=== PATIENT | female | born 1950 | race Caucasian/White ===

== ENCOUNTER 2022-03-14 12:41 | Inpatient (IN) | payer MEDICAID ==
[2022-03-13 20:37] VITALS: BP 159/70
[~2022-03-14] VITALS: Ht 157.5 cm; Wt 77.1 kg
[2022-03-14 12:53] VITALS: BP 167/73
--- NOTE | 2022-03-14 13:30 | NUR ---
71/F C/O CHEST PAIN ONSET 1 HR RADIATING TO NECK AND BACK AND RIGHT ARM. PT DENIES DIZZINESS OR SYNCOPE. PT REPORTS TAKING LOSARTAN SL TODAY. AAO4, AMBULATORY, ON MONITOR. VITALS STABLE. ALLERGY: VIPIRON, CATOPRIL PMH: HTN, HDL, MASTECTOMY (RIGHT) 22 Y AGO
[2022-03-14] MEDS ORDERED: NITROGLYCERIN 0.4 MG TAB SL ONE (13:40)
[2022-03-14] MEDS ORDERED: ASPIRIN 325 MG TAB PO ONE (13:40)
[2022-03-14] MEDS ORDERED: MORPHINE SULFATE 2 MG/ML SYR IVP ONE (13:40)
--- NOTE | 2022-03-14 13:55 | NUR ---
RANDALL COLLECTED AND SENT TO LAB
--- NOTE | 2022-03-14 13:59 | NUR ---
US AT BEDSIDE
[2022-03-14 14:18] LABS: ALBUMIN 3.5 g/dL (3.4-5.0); ANION GAP 11.3 (8-16); ASPARTATE AMINOTRANSFERASE 20 U/L (15-37); CARBON DIOXIDE 28.1 mmol/L (21-32); CHLORIDE 106 mmol/L (98-107); CREATININE 0.6 mg/dL (0.6-1.3); GLUCOSE 111 mg/dL (74-106); POTASSIUM 3.4 mmol/L (3.5-5.1); SODIUM SERUM 142 mmol/L (136-145); TOTAL BILIRUBIN 0.2 mg/dL (0.0-1.0)
[2022-03-14 14:26] LABS: BASOPHILS # (AUTO) 0.1 K/uL (0.00-0.22); BASOPHILS % (AUTO) 0.9 % (0.0-2.0); EOSINOPHILS # (AUTO) 0.2 K/uL (0-0.4); EOSINOPHILS % (AUTO) 2.4 % (0.0-4.0); HEMATOCRIT 38.1 % (36-48); HEMOGLOBIN 12.6 g/dL (12.0-16.0); LYMPHOCYTES # (AUTO) 4.5 K/uL (2.5-16.5); MEAN CORPUSCULAR HEMOGLOBIN 30 pg (27-31); MEAN CORPUSCULAR HGB CONC 33 g/dL (33-37); MONOCYTES # (AUTO) 0.6 K/uL (0.8-1.0); MONOCYTES % (AUTO) 5.9 % (1.7-9.3); NEUTROPHILS # (AUTO) 4.4 K/uL (1.8-7.7); NEUTROPHILS % (AUTO) 44.8 % (42.2-75.2); PLATELET COUNT (AUTO) 202 K/uL (140-450); RED BLOOD CELL COUNT(AUTO) 4.19 MIL/uL (4.20-5.40); RED CELL DISTRIBUTION WIDTH 13.9 % (11.6-13.7); WHITE BLOOD COUNT (AUTO) 9.8 K/uL (4.8-10.8)
[2022-03-14 14:27] LABS: UREA NITROGEN, BLOOD 8 mg/dL (7-18)
--- NOTE | 2022-03-14 14:30 | NUR ---
PT DENIES PAIN AT THIS TIME. HELD NITRO AND MORPHINE PER PARAMETER
--- NOTE | 2022-03-14 17:15 | NUR ---
DAUGHTER AT BEDSIDE.
[2022-03-14] MEDS ORDERED: LOSA50TA57 PO (18:39)
--- NOTE | 2022-03-14 19:52 | NUR ---
Patient will be admitted to care of Dr. Valdez. Admited to TELE. Will go to room 121A. Belongings list completed. Report to JACE Epps.
--- NOTE | 2022-03-14 20:17 | NUR ---
PT TRANSPORTED FROM ER VIA GURNEY. PT IS AAOX4 ON RA. PT IS KINYARWANDA SPEAKER. PT IS AMBULATORY. GAIT STEADY. PT HAS LEFT WRIST 18 GAUGE AND SALINE LOCK. PT IS ASKING FOR HER EVENING BLOOD PRESSURE MEDICATIONS. WILL MESSAGE DR. CASE. PT DENIES ANY CHEST PAIN AT THIS TIME. WILL CONTINUE TO MONITOR THE PT.
[2022-03-14] MEDS ORDERED: LOSARTAN 25 MG TAB PO SCH (21:00)
[2022-03-14] MEDS ORDERED: LOSARTAN 25 MG TAB ONE ×2 (21:55→22:04)
[2022-03-14] MEDS: LOSARTAN 25 MG TAB PO SCH (22:11)
--- NOTE | 2022-03-14 22:11 | NUR ---
DR. CASE SAID TO RESTART PT BP MEDICATION. LOSARTAN 50 MG PO BID. MEDICATION GIVEN. TO PT. NO ADVERSE REACTION NOTED. WILL CONTINUE TO MONITOR THE PT.
[2022-03-15] VITALS: BP 157/65
[2022-03-15] MEDS ORDERED: DOCUSATE SODIUM 100 MG GELCAP PO PRN (00:55)
[2022-03-15] MEDS ORDERED: SODIUM PHOS / POTASSIUM PHOS 1 PKT PDR PO PRN (00:55)
[2022-03-15] MEDS ORDERED: HYDROcodone/APAP 5/325 MG 1 TAB TAB PO PRN (00:55)
[2022-03-15] MEDS ORDERED: ONDANSETRON 4 MG/2 ML VIAL IM/IVP PRN (00:55)
[2022-03-15] MEDS ORDERED: ACETAMINOPHEN 325 MG TAB PO PRN (00:55)
[2022-03-15] MEDS ORDERED: POTASSIUM CHLORIDE 10 MEQ TABER PO PRN (00:55)
[2022-03-15] MEDS ORDERED: MAGNESIUM OXIDE 400 MG TAB PO PRN (00:55)
[2022-03-15] MEDS ORDERED: MORPHINE SULFATE 2 MG/ML SYR IVP PRN (00:55)
--- NOTE | 2022-03-15 01:26 | NUR ---
PT IS SLEEPING COMFORTABLY IN BED. PT IS NOT IN ANY ACUTE DISTRESS. BREATHING EVEN AND UNLABORED. WILL CONTINUE TO MONITOR THE PT.
--- NOTE | 2022-03-15 02:06 | NUR ---
OBSERVED PT. PT IS SLEEPING WITH NO ACUTE DISTRESS. VISIBLE RISE AND CHEST FALL. WILL CONTINUE TO MONITOR THE PT.
[2022-03-15 04:00] VITALS: BP 144/61
--- NOTE | 2022-03-15 04:10 | NUR ---
VITAL SIGNS TAKEN AND STABLE. PT DENIES ANY PAIN. ALL NEEDS MET. WILL CONTINUE TO MONITOR THE PT.
[2022-03-15 05:46] LABS: BASOPHILS # (AUTO) 0.1 K/uL (0.00-0.22); BASOPHILS % (AUTO) 0.6 % (0.0-2.0); EOSINOPHILS # (AUTO) 0.3 K/uL (0-0.4); EOSINOPHILS % (AUTO) 3.2 % (0.0-4.0); HEMATOCRIT 37.3 % (36-48); HEMOGLOBIN 12.5 g/dL (12.0-16.0); LYMPHOCYTES # (AUTO) 3.8 K/uL (2.5-16.5); LYMPHOCYTES % (AUTO) 39.4 % (20.5-51.1); MEAN CORPUSCULAR HEMOGLOBIN 30 pg (27-31); MEAN CORPUSCULAR HGB CONC 34 g/dL (33-37); MEAN CORPUSCULAR VOLUME 89.8 fL (80-94); MONOCYTES # (AUTO) 0.6 K/uL (0.8-1.0); MONOCYTES % (AUTO) 6.4 % (1.7-9.3); NEUTROPHILS # (AUTO) 4.9 K/uL (1.8-7.7); NEUTROPHILS % (AUTO) 50.4 % (42.2-75.2); PLATELET COUNT (AUTO) 253 K/uL (140-450); RED BLOOD CELL COUNT(AUTO) 4.15 MIL/uL (4.20-5.40); RED CELL DISTRIBUTION WIDTH 13.8 % (11.6-13.7); WHITE BLOOD COUNT (AUTO) 9.7 K/uL (4.8-10.8)
[2022-03-15 06:17] LABS: CHOL/HDL RATIO 4.6 (1-4.5)
[2022-03-15 06:19] LABS: ANION GAP 11.2 (8-16); CARBON DIOXIDE 28.7 mmol/L (21-32); CHLORIDE 108 mmol/L (98-107); CREATININE 0.6 mg/dL (0.6-1.3); GLUCOSE 98 mg/dL (74-106); POTASSIUM 3.9 mmol/L (3.5-5.1); SODIUM SERUM 144 mmol/L (136-145); UREA NITROGEN, BLOOD 28 mg/dL (7-18)
[2022-03-15 06:28] LABS: MAGNESIUM 1.7 mg/dL (1.8-2.4)
[2022-03-15 06:49] LABS: THYROID STIMULATING HORMONE 2.82 uIU/mL (0.34-3.74)
--- NOTE | 2022-03-15 07:13 | NUR ---
ENDORSED PT TO DAY SHIFT JACE MCKEON FOR CONTINUITY OF CARE. PT IS STABLE.
[2022-03-15 08:00] VITALS: BP 144/76
[2022-03-15] MEDS ORDERED: PANTOPRAZOLE 40 MG TABEC PO SCH (09:00)
[2022-03-15] MEDS: LOSARTAN 25 MG TAB PO SCH (09:31)
--- NOTE | 2022-03-15 10:25 | NUR ---
PATIENT HAS BEEN SCREENED AND CATEGORIZED LOW NUTRITION RISK. PATIENT WILL BE SEEN WITHIN 7 DAYS OF ADMISSION. 03/21/22 REVIEW[address] BY TRI [address]UN[address]
[2022-03-15 11:50] VITALS: BP 144/76
[2022-03-15] MEDS ORDERED: ATOR40TA PO (13:54)
[2022-03-15 16:00] VITALS: BP 147/78
[2022-03-15 16:43] VITALS: BP 144/76
--- NOTE | 2022-03-15 17:40 | NUR ---
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 DISCHARGE INSTRUCTIONS GIVEN TO PT AND PT VERBALIZED UNDERSTANDING. DC'D AMBULATORY WITH DAUGHTER TO HOME.
== END 2022-03-15 17:40 | disposition home or self-care (01) | DRG 203 ==
LOC: MED 12:41 → MTU 17:55
PROVIDERS: ADMIT Hospitalist; ATTEND Hospitalist
DX: M94.0 Chondrocostal junction syndrome [Tietze] (principal); E87.8 Other disorders of electrolyte and fluid balance, not elsewhere classified; E78.5 Hyperlipidemia, unspecified; E83.42 Hypomagnesemia; I10 Essential (primary) hypertension; Z20.822 Contact with and (suspected) exposure to COVID-19; M79.89 Other specified soft tissue disorders; Z85.3 Personal history of malignant neoplasm of breast; Z90.11 Acquired absence of right breast and nipple; R19.7 Diarrhea, unspecified
CPT/HCPCS: 36415; 71045; 76705; 80048; 80053; 83735; 83880; 84100; 84443; 84484; 85025; 87081; 93005; 93971; 99285; Q0092